=== PATIENT | female | born 1980 | race Caucasian/White ===

== ENCOUNTER 2019-04-21 11:35 | Inpatient (IN) | payer BC ==
[~2019-04-21 11:35] MED LIST: Bupivacaine 0.25% 10 ML SDV ONE
[2019-04-21] MEDS ORDERED: Sodium Chloride 0.9% 10 ML Syringe FLUSH PRN (12:18)
[2019-04-21] MEDS ORDERED: Lidocaine 1% 50 ML MDV INJECT ONE (12:18)
[2019-04-21] MEDS ORDERED: Ondansetron 4 MG/2 ML SDV IVPUSH PRN ×2 (12:18→13:26)
[2019-04-21] MEDS ORDERED: Nalbuphine 10 MG/ML Syringe IVPUSH PRN (12:18)
[2019-04-21] MEDS ORDERED: Oxytocin/Lactated Ringers 10 UNIT/1,000 ML BAG IV SCH ×3 (12:30→18:36)
[2019-04-21] MEDS: Lactated Ringers 1,000 ML IV SCH ×2 (12:57→13:48)
--- NOTE | 2019-04-21 13:15 | PCM.LDHP ---
<Charlette Fay - Last Filed: 04/21/19 13:08> L&D History of Present Illness - General Date of Service: 04/21/19 Admit Problem/Dx: Patient Status Order with Admit Dx/Problem 04/21/19 12:18 Patient Status [ADT] Routine Admission Diagnosis/Problem Admission Diagnosis/Problem Source of Information: Patient History Limitations: Reports: No Limitations - History of Present Illness Introduction:: 38 year old presents today with contractions she describes have been happening since 3 am today. Patient reports contractions were consistently 10 minutes apart until about 11am this morning on the way to the hospital they shortened to 4 minutes apart. She reports lower abdominal discomfort when contractions take place and denies any radiation to low back. Patient has not taken anything to alleviate the discomfort. She reports these feel similar to the contractions she has felt with her previous deliveries. Patient admits to some vaginal discharge clear and mucous fluid. She reports there was a very small amount of blood right before they left to come in. She plans on receiving an epidural for pain management. Timing/Duration: Reports: minutes: (4) Location, : Reports: Uterus Quality: Reports: Same as Previous Episode Severity: Mild Associated Symptoms: Reports: vaginal discharge (mucous and clear fluid), vaginal fluid - Related Data Allergies/Adverse Reactions: Allergies Allergy/AdvReac Type Severity Reaction Status Date / Time cefaclor [From Ceclor] Allergy Hives Verified 04/21/19 12:15 Home Medications: Home Meds #103/Iron Fumarate/Fa [ ] 1 each PO DAILY 04/21/19 [ History] Ranitidine HCl [Ranitidine] 150 mg PO BID 04/21/19 [History] Past Medical History Gastrointestinal History: Reports: GERD (Patient experiencing GERD during ), Irritable Bowel Syndrome 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: - Past Surgical History Female Surgical History: Reports: D&C (2012) Social & Family History - Family History Family Medical History: Noncontributory - Tobacco Use Smoking Status *Q: Never Smoker Second Hand Smoke Exposure: No - Tobacco Core Measures Tobacco Use/Smoking Within Last 30 Days: No Smokeless Tobacco Use in Last 30 Days: No Smokeless Tobacco Use History: None - Caffeine Use Caffeine Use: Reports: None - Alcohol Use Alcohol Use History: No - Recreational Drug Use Recreational Drug Use: No H&P Review of Systems - Review of Systems: Review Of Systems: See Below General: Denies: Fever, Chills, Fatigue HEENT: Denies: Ear Pain, Eye Pain, Headaches, Hearing Changes, Post Nasal Drip, Sinus Congestion, Sore Throat, Visual Changes Pulmonary: Denies: Shortness of Breath, Wheezing, Cough Cardiovascular: Denies: Chest Pain, Palpitations Gastrointestinal: Denies: Constipation, Diarrhea, Nausea, Vomiting Genitourinary: Denies: Dysuria, Burning, Pain Musculoskeletal: Denies: Arm Pain, Back Pain, Leg Pain, Joint Swelling Skin: Denies: Rash, Lesions, Lumps Psychiatric: Denies: Depression, Anxiety Neurological: Denies: Dizziness, Syncope, Tingling Hematologic/Lymphatic: Denies: Anemia, Other (Hx blood clots) L&D Exam - Exam Exam: See Below - Vital Signs Vital Signs: Last Vital Signs Temp 98.2 F 04/21/19 12:18 Pulse 85 04/21/19 12:18 Resp 15 04/21/19 12:18 BP 125/73 04/21/19 12:18 Pulse Ox Weight: 65.771 kg - OB Specific Contraction Intensity: Mild Movement: Active Heart Tones: Present - Hernandez Score Hernandez Score Cervix Position: Anterior Hernandez Score Consistency: Soft Hernandez Score Effacement: >80% (80) Hernandez Score Dilation: > 5 cm (5) Hernandez Score Infant's Station: -2 Hernandez Score Total: 11 - Exam General: Alert, Oriented HEENT: Conjunctiva Clear, EOMI Neck: Supple, Trachea Midline Lungs: Clear to Auscultation, Normal Respiratory Effort Cardiovascular: Regular Rate, Regular Rhythm Genitourinary: Normal external exam Skin: Warm, Dry, Intact Psychiatric: Alert, Normal Affect, Normal Mood - Patient Data Lab Results Last 24 hrs: Laboratory Results - last 24 hr 04/21/19 Range/Units 12:50 WBC 13.21 H (3.98-10.04) K/mm3 RBC 4.35 (3.98-5.22) M/mm3 Hgb 10.9 L (11.2-15.7) gm/dl Hct 34.5 (34.1-44.9) % MCV 79.3 L D (79.4-94.8) fl MCH 25.1 L (25.6-32.2) pg MCHC 31.6 L (32.2-35.5) g/dl RDW Std Deviation 38.8 (36.4-46.3) fL Plt Count 233 (182-369) K/mm3 MPV 9.3 L (9.4-12.3) fl Neut % (Auto) 76.4 H (34.0-71.1) % Lymph % (Auto) 13.6 L (19.3-51.7) % [place] % (Auto) 7.5 (4.7-12.5) % Eos % (Auto) 1.8 (0.7-5.8) Baso % (Auto) 0.2 (0.1-1.2) % Neut # (Auto) 10.11 H (1.56-6.13) K/mm3 Lymph # (Auto) 1.79 (1.18-3.74) K/mm3 [place] # (Auto) 0.99 H (0.24-0.36) K/mm3 Eos # (Auto) 0.24 (0.04-0.36) K/mm3 Baso # (Auto) 0.02 (0.01-0.08) K/mm3 Result Diagrams: 04/21/19 12:50 - Problem List (1) 39 weeks gestation of SNOMED Code(s): 05121697 ICD Code: Z3A.39 - 39 WEEKS GESTATION OF Status: Acute Current Visit: Yes (2) Gastroesophageal reflux during in third trimester, antepartum SNOMED Code(s): 824241413 ICD Code: O99.613 - DISEASES OF THE DGSTV SYS COMP , THIRD TRIMESTER ; K21.9 - GASTRO-ESOPHAGEAL REFLUX DISEASE WITHOUT ESOPHAGITIS Status: Acute Current Visit: Yes (3) Irritable bowel syndrome SNOMED Code(s): 07373639 ICD Code: K58.9 - IRRITABLE BOWEL SYNDROME WITHOUT DIARRHEA Status: Acute Current Visit: Yes Problem List Initiated/Reviewed/Updated: Yes Orders Last 24hrs: Active Orders 24 hr Category Date Time Status Patient Status [ADT] Routine ADT 04/21/19 12:18 Active Activity as Tolerated [RC] PFP Care 04/21/19 12:18 Active Communication Order [RC] ASDIRECTED Care 04/21/19 12:18 Active Heart Tones [RC] ASDIRECTED Care 04/21/19 12:19 Active Notify Provider [RC] PFP Care 04/21/19 12:18 Active Notify Provider [RC] PRN Care 04/21/19 12:18 Active Peripheral IV Care [RC] . DIRECTED Care 04/21/19 12:19 Active Pump Management, Intrathecal [RC] ASDIRECTED Care 04/21/19 12:20 Active Urinary Catheter Assessment [RC] ASDIRECTED Care 04/21/19 12:18 Active Vital Signs [RC] PER UNIT ROUTINE Care 04/21/19 12:18 Active Regular Diet [DIET] Diet 04/21/19 Breakfast Active RAPID PLASMA REAGIN,RPR [CHEM] Routine Lab 04/21/19 12:50 Received TYPE AND SCREEN [BBK] Stat Lab 04/21/19 12:50 Received Lactated Ringers [Ringers, Lactated] 1,000 ml Med 04/21/19 12:30 Active IV ASDIRECTED Nalbuphine [Nubain] Med 04/21/19 12:18 Active 10 mg IVPUSH Q2H PRN Ondansetron [Zofran] Med 04/21/19 12:18 Active 4 mg IVPUSH Q4H PRN Oxytocin/Lactated Ringers [Pitocin in LR 10 Units/1,000 Med 04/21/19 12:30 Active ML] 10 unit in 1,000 ml IV .CONTINUOUS Oxytocin/Lactated Ringers [Pitocin in LR 10 Units/1,000 Med 04/21/19 12:30 Active ML] 10 unit in 1,000 ml IV TITRATE Sodium Chloride 0.9% [Saline Flush] Med 04/21/19 12:18 Active 10 ml FLUSH ASDIRECTED PRN Electronic Heart Tones Ext w TOCO [WOMSER] Oth 04/21/19 12:18 Ordered Routine Electronic Heart Tones Internal [WOMSER] Per Unit Oth 04/21/19 12:18 Ordered Routine Peripheral IV Insertion Adult [OM.PC] Routine Oth 04/21/19 12:18 Ordered Resuscitation Status Routine Resus Stat 04/21/19 12:18 Ordered Medication Orders Lactated Ringer's (Ringers, Lactated) 1,000 mls @ 100 mls/hr IV ASDIRECTED BERTIN Last Admin: 04/21/19 12:57 Dose: 100 mls/hr Oxytocin/Lactated Ringer's (Pitocin In Lr 10 Units/1,000 Ml) 10 unit in 1,000 mls @ 12 mls/hr IV TITRATE BERTIN; Protocol Oxytocin/Lactated Ringer's (Pitocin In Lr 10 Units/1,000 Ml) 10 unit in 1,000 mls @ 100 mls/hr IV .CONTINUOUS BERTIN; Protocol Nalbuphine HCl (Nubain) 10 mg IVPUSH Q2H PRN PRN Reason: Pain Ondansetron HCl (Zofran) 4 mg IVPUSH Q4H PRN PRN Reason: Nausea/Vomiting Sodium Chloride (Saline Flush) 10 ml FLUSH ASDIRECTED PRN PRN Reason: Keep Vein Open Assessment/Plan Comment:: * Assess routine vitals. * Small amount of regular diet as tolerated. * IV fluids and keep the IV open. Pitocin may be used if contractions slow. * Order for CBC and RPR to be drawn GIOVANNA JaureguiS, 1340, 04/21/19 <Valente Merlos - Last Filed: 04/21/19 13:52> L&D History of Present Illness - General Admit Problem/Dx: Patient Status Order with Admit Dx/Problem 04/21/19 12:18 Patient Status [ADT] Routine Admission Diagnosis/Problem Admission Diagnosis/Problem - History of Present Illness Present Illness Comments:: Oneyda Purvis is a 38 year old 042 at 39 weeks 0 days by LMP consistent with 11-week ultrasound ([facility] 04/28/2019) who presents with spontaneous labor. She has had routine care with myself, Dr. Merlos starting at 10 weeks gestational age. She received influenza vaccine on 01/23/2019 and Tdap vaccine on 02/21/2019. Her has been overall uncomplicated except for development of gastroesophageal reflux during the over the last several weeks. She was noted to have hypocoiling of the umbilical cord on her anatomy ultrasound with normal helical coiling noted on biophysical profile on 03/14/2019. She discontinued weekly monitoring at that point. Her is complicated by: * Advanced maternal age, declined genetic screening testing * Hypocoiling of the umbilical cord noted on initial ultrasound with resolution noted on biophysical profile performed 03/14/2019 * Echogenic cardiac focus noted on anatomy ultrasound on 12/28/2018, no other features suggestive of Down syndrome or other genetic defects * Gastroesophageal reflux that developed during third trimester of * Irritable bowel syndrome labs Blood type: A+ Antibody screen: Negative First trimester hematocrit/hemoglobin: 41.7%/14.0 on 10/01/2018 Platelets: 282 on 10/01/2018 Pap smear: Negative for intraepithelial lesion or malignancy with negative HPV on 08/23/2018 Urine culture: Mixed reynold suggestive of contamination Rubella status: Immune Hepatitis B surface antigen: Negative RPR: Negative HIV: Negative Gonorrhea: Negative Chlamydia: Negative anatomy ultrasound: Grossly normal anatomy ultrasound except for echogenic focus in the left ventricle, weight 60th percentile on 12/28/2018, anterior placenta, hypocoiling of umbilical cord, most recent estimated weight was 33rd percentile on 03/14/2019 One hour glucose tolerance test: 117 Second trimester hematocrit/hemoglobin: 32.9%/10.5 on 02/19/2019 Platelets: 202 on 02/19/2019 GBS status: Negative L&D Exam - Vital Signs Vital Signs: Last Vital Signs Temp 36.8 C 04/21/19 12:18 Pulse 85 04/21/19 12:18 Resp 15 04/21/19 12:18 BP 125/73 04/21/19 12:18 Pulse Ox - Patient Data Lab Results Last 24 hrs: Laboratory Results - last 24 hr 04/21/19 04/21/19 Range/Units 12:50 12:50 WBC 13.21 H (3.98-10.04) K/mm3 RBC 4.35 (3.98-5.22) M/mm3 Hgb 10.9 L (11.2-15.7) gm/dl Hct 34.5 (34.1-44.9) % MCV 79.3 L D (79.4-94.8) fl MCH 25.1 L (25.6-32.2) pg MCHC 31.6 L (32.2-35.5) g/dl RDW Std Deviation 38.8 (36.4-46.3) fL Plt Count 233 (182-369) K/mm3 MPV 9.3 L (9.4-12.3) fl Neut % (Auto) 76.4 H (34.0-71.1) % Lymph % (Auto) 13.6 L (19.3-51.7) % [place] % (Auto) 7.5 (4.7-12.5) % Eos % (Auto) 1.8 (0.7-5.8) Baso % (Auto) 0.2 (0.1-1.2) % Neut # (Auto) 10.11 H (1.56-6.13) K/mm3 Lymph # (Auto) 1.79 (1.18-3.74) K/mm3 [place] # (Auto) 0.99 H (0.24-0.36) K/mm3 Eos # (Auto) 0.24 (0.04-0.36) K/mm3 Baso # (Auto) 0.02 (0.01-0.08) K/mm3 Blood Type A POSITIVE Gel Antibody Screen Negative Result Diagrams: 04/21/19 12:50 Orders Last 24hrs: Active Orders 24 hr Category Date Time Status Patient Status [ADT] Routine ADT 04/21/19 12:18 Active Activity as Tolerated [RC] PFP Care 04/21/19 12:18 Active Communication Order [RC] ASDIRECTED Care 04/21/19 12:18 Active Heart Tones [RC] ASDIRECTED Care 04/21/19 12:19 Active Notify Provider [RC] ASDIRECTED Care 04/21/19 13:26 Active Notify Provider [RC] PFP Care 04/21/19 12:18 Active Notify Provider [RC] PRN Care 04/21/19 12:18 Active Oxygen Therapy [RC] ASDIRECTED Care 04/21/19 13:26 Active Peripheral IV Care [RC] . DIRECTED Care 04/21/19 12:19 Active Pulse Oximetry [RC] ASDIRECTED Care 04/21/19 13:26 Active Pump Management, Intrathecal [RC] ASDIRECTED Care 04/21/19 12:20 Active Urinary Catheter Assessment [RC] ASDIRECTED Care 04/21/19 12:18 Active Vital Signs [RC] PER UNIT ROUTINE Care 04/21/19 12:18 Active Regular Diet [DIET] Diet 04/21/19 Breakfast Active RAPID PLASMA REAGIN,RPR [CHEM] Routine Lab 04/21/19 12:50 Received Bupivicaine/fentaNYL/NS [fentaNYL/Bupivacaine/NS 2 MCG- Med 04/21/19 13:26 Active 0.125% 250 ML] 0 ml EPIDUR CONTINUOUS PRN Lactated Ringers [Ringers, Lactated] 1,000 ml Med 04/21/19 12:30 Active IV ASDIRECTED Nalbuphine [Nubain] Med 04/21/19 12:18 Active 10 mg IVPUSH Q2H PRN Ondansetron [Zofran] Med 04/21/19 13:26 Active 4 mg IVPUSH ONETIME PRN Ondansetron [Zofran] Med 04/21/19 12:18 Active 4 mg IVPUSH Q4H PRN Oxytocin/Lactated Ringers [Pitocin in LR 10 Units/1,000 Med 04/21/19 12:30 Active ML] 10 unit in 1,000 ml IV .CONTINUOUS Oxytocin/Lactated Ringers [Pitocin in LR 10 Units/1,000 Med 04/21/19 12:30 Active ML] 10 unit in 1,000 ml IV TITRATE Phenylephrine [Roger-Synephrine] 1 mg Med 04/21/19 13:30 Active Sodium Chloride 0.9% [Normal Saline] 10 ml IV TITRATE Sodium Chloride 0.9% [Saline Flush] Med 04/21/19 12:18 Active 10 ml FLUSH ASDIRECTED PRN ePHEDrine [ePHEDrine sulfate] Med 04/21/19 13:26 Active 5 mg IVPUSH ASDIRECTED PRN fentaNYL [Sublimaze] Med 04/21/19 13:26 Active 100 mcg EPIDUR Q3H PRN Electronic Heart Tones Ext w TOCO [WOMSER] Oth 04/21/19 12:18 Ordered Routine Electronic Heart Tones Internal [WOMSER] Per Unit Ot 04/21/19 12:18 Ordered Routine Peripheral IV Insertion Adult [OM.PC] Routine Oth 04/21/19 12:18 Ordered Resuscitation Status Routine Resus Stat 04/21/19 12:18 Ordered Medication Orders Ephedrine Sulfate (Ephedrine Sulfate) 5 mg IVPUSH ASDIRECTED PRN PRN Reason: Hypotension Fentanyl (Sublimaze) 100 mcg EPIDUR Q3H PRN PRN Reason: Pain Fentanyl/Bupivacaine HCl (Fentanyl/Bupivacaine/Ns 2 Mcg-0.125% 250 Ml) 0 ml EPIDUR CONTINUOUS PRN PRN Reason: Pain Lactated Ringer's (Ringers, Lactated) 1,000 mls @ 100 mls/hr IV ASDIRECTED BERTIN Last Admin: 04/21/19 12:57 Dose: 100 mls/hr Oxytocin/Lactated Ringer's (Pitocin In Lr 10 Units/1,000 Ml) 10 unit in 1,000 mls @ 12 mls/hr IV TITRATE BERTIN; Protocol Oxytocin/Lactated Ringer's (Pitocin In Lr 10 Units/1,000 Ml) 10 unit in 1,000 mls @ 100 mls/hr IV .CONTINUOUS BERTIN; Protocol Phenylephrine HCl 1 mg/ Sodium (Chloride) 10.1 mls @ 1 mls/sec IV TITRATE BERTIN; Protocol Nalbuphine HCl (Nubain) 10 mg IVPUSH Q2H PRN PRN Reason: Pain Ondansetron HCl (Zofran) 4 mg IVPUSH Q4H PRN PRN Reason: Nausea/Vomiting Ondansetron HCl (Zofran) 4 mg IVPUSH ONETIME PRN PRN Reason: Nausea/Vomiting Sodium Chloride (Saline Flush) 10 ml FLUSH ASDIRECTED PRN PRN Reason: Keep Vein Open Assessment/Plan Comment:: I have seen and evaluated the patient with the PA student and agree with the assessment and plan as per above. No changes needed. Anticipate vaginal delivery unless otherwise indicated Valente Merlos MD 1:52 PM 04/21/2019
[2019-04-21] MEDS ORDERED: ePHEDrine 50 MG/ML SDV IVPUSH PRN (13:26)
[2019-04-21] MEDS ORDERED: fentaNYL 100 MCG/2 ML SDV EPIDUR PRN (13:26)
[2019-04-21] MEDS ORDERED: fentaNYL/Bupivacaine/NS 2 MCG-0.125% 250 ML EPIDUR PRN (13:26)
--- NOTE | 2019-04-21 13:28 | PCM.PREANE ---
Preanesthetic Assessment - Anesthesia/Transfusion/Family Hx Anesthesia History: Prior Anesthesia Without Reaction Family History of Anesthesia Reaction: No Transfusion History: No Prior Transfusion(s) Intubation History: Unknown - Review of Systems General: No Symptoms Pulmonary: No Symptoms Cardiovascular: No Symptoms Gastrointestinal: No Symptoms (GERD) Neurological: No Symptoms Other: Reports: None - Physical Assessment NPO Status Date: 04/21/19 NPO Status Time: 11:00 Vital Signs: Last Vital Signs Temp 36.8 C 04/21/19 12:18 Pulse 85 04/21/19 12:18 Resp 15 04/21/19 12:18 BP 125/73 04/21/19 12:18 Pulse Ox Height: 1.55 m Weight: 65.771 kg ASA Class: 2 Mental Status: Alert & Oriented x3 Airway Class: Mallampati = 2 Dentition: Reports: Normal Dentition, Caries Thyro-Mental Finger Breadths: 3 Mouth Opening Finger Breadths: 3 ROM/Head Extension: Full Lungs: Clear to Auscultation, Normal Respiratory Effort Cardiovascular: Regular Rate, Regular Rhythm, No Murmurs - Lab Values: Laboratory Last Values WBC 13.21 K/mm3 (3.98-10.04) H 04/21/19 12:50 RBC 4.35 M/mm3 (3.98-5.22) 04/21/19 12:50 Hgb 10.9 gm/dl (11.2-15.7) L 04/21/19 12:50 Hct 34.5 % (34.1-44.9) 04/21/19 12:50 MCV 79.3 fl (79.4-94.8) L D 04/21/19 12:50 MCH 25.1 pg (25.6-32.2) L 04/21/19 12:50 MCHC 31.6 g/dl (32.2-35.5) L 04/21/19 12:50 RDW Std Deviation 38.8 fL (36.4-46.3) 04/21/19 12:50 Plt Count 233 K/mm3 (182-369) 04/21/19 12:50 MPV 9.3 fl (9.4-12.3) L 04/21/19 12:50 Neut % (Auto) 76.4 % (34.0-71.1) H 04/21/19 12:50 Lymph % (Auto) 13.6 % (19.3-51.7) L 04/21/19 12:50 [place] % (Auto) 7.5 % (4.7-12.5) 04/21/19 12:50 Eos % (Auto) 1.8 (0.7-5.8) 04/21/19 12:50 Baso % (Auto) 0.2 % (0.1-1.2) 04/21/19 12:50 Neut # (Auto) 10.11 K/mm3 (1.56-6.13) H 04/21/19 12:50 Lymph # (Auto) 1.79 K/mm3 (1.18-3.74) 04/21/19 12:50 [place] # (Auto) 0.99 K/mm3 (0.24-0.36) H 04/21/19 12:50 Eos # (Auto) 0.24 K/mm3 (0.04-0.36) 04/21/19 12:50 Baso # (Auto) 0.02 K/mm3 (0.01-0.08) 04/21/19 12:50 Above labs reviewed and noted and within acceptable ranges to proceed with epidural. - Allergies Allergies/Adverse Reactions: Allergies Allergy/AdvReac Type Severity Reaction Status Date / Time cefaclor [From [facility]] Allergy Hives Verified 04/21/19 12:15 - Anesthesia Plan Pre-Op Medication Ordered: None - Acknowledgements Anesthesia Type Planned: Epidural Pt an Appropriate Candidate for the Planned Anesthesia: Yes Alternatives and Risks of Anesthesia Discussed w Pt/Guardian: Yes Pt/Guardian Understands and Agrees with Anesthesia Plan: Yes PreAnesthesia Questionnaire Gastrointestinal History: Reports: GERD (Patient experiencing GERD during ), Irritable Bowel Syndrome [employer]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: - Past Surgical History Female Surgical History: Reports: D&C - SUBSTANCE USE Smoking Status *Q: Never Smoker Second Hand Smoke Exposure: No Recreational Drug Use History: No - HOME MEDS Home Medications: Home Meds #103/Iron Fumarate/Fa [ ] 1 each PO DAILY 04/21/19 [ History] Ranitidine HCl [Ranitidine] 150 mg PO BID 04/21/19 [History] - CURRENT (IN HOUSE) MEDS Current Meds: Current Medications Ephedrine Sulfate (Ephedrine Sulfate) 5 mg IVPUSH ASDIRECTED PRN PRN Reason: Hypotension Fentanyl (Sublimaze) 100 mcg EPIDUR Q3H PRN PRN Reason: Pain Fentanyl/Bupivacaine HCl (Fentanyl/Bupivacaine/Ns 2 Mcg-0.125% 250 Ml) ml EPIDUR CONTINUOUS PRN PRN Reason: Pain Lactated Ringer's (Ringers, Lactated) 1,000 mls @ 100 mls/hr IV ASDIRECTED BERTIN Last Admin: 04/21/19 12:57 Dose: 100 mls/hr Oxytocin/Lactated Ringer's (Pitocin In Lr 10 Units/1,000 Ml) 10 unit in 1,000 mls @ 12 mls/hr IV TITRATE BERTIN; Protocol Oxytocin/Lactated Ringer's (Pitocin In Lr 10 Units/1,000 Ml) 10 unit in 1,000 mls @ 100 mls/hr IV .CONTINUOUS BERTIN; Protocol Phenylephrine HCl 1 mg/ Sodium (Chloride) 10.1 mls @ 1 mls/sec IV TITRATE BERTIN; Protocol Nalbuphine HCl (Nubain) 10 mg IVPUSH Q2H PRN PRN Reason: Pain Ondansetron HCl (Zofran) 4 mg IVPUSH Q4H PRN PRN Reason: Nausea/Vomiting Ondansetron HCl (Zofran) 4 mg IVPUSH ONETIME PRN PRN Reason: Nausea/Vomiting Sodium Chloride (Saline Flush) 10 ml FLUSH ASDIRECTED PRN PRN Reason: Keep Vein Open Discontinued Medications Lidocaine HCl (Xylocaine 1%) 50 ml INJECT ONETIME ONE Stop: 04/21/19 12:19
[2019-04-21] MEDS ORDERED: Phenylephrine 1 MG in Sodium Chloride 0.9% 10 ML IV SCH (13:30)
--- NOTE | 2019-04-21 18:12 | PCM.DEL ---
L & D Note - General Info Date of Service: 04/21/19 Mother's Due Date: 04/28/19 - Delivery Note Labor: Spontaneous, Augmented by ARM Delivery Outcome: Livebirth Delivery Method: Spontaneous Vaginal Delivery-Single Presentation: Right Occiput Posterior (ROP) Nuchal Cord: Present (not reduced prior to delivery due to tight cord) Anesthesia Type: Epidural Episiotomy Type: None Laceration: 1st Degree (midline perineal, repaired with 4-0 Vicryl) Suture type: Vicryl Suture size: 4-0 Placenta: Intact, Spontaneous Cord: 3 Vessels Estimated Blood Loss: 200 Resuscitation Needed: No : Bulb Syringe, Stimulated, Warmed, Freedom Used, Warmer Used Provider: Valente Merlos Score 1 min: 8 Score 5 min: 9 Second Stage Interventions: Reports: Pushing Effectively, Pushing, Pulls Own Legs Back, Pushing, Squatting (for a short while to move baby further into pelvis) Delivery Comments (Free Text/Narrative):: Stage I: Oneyda Purvis was admitted for spontaneous labor. On admission her cervix was dilated to 5 cm. She was GBS negative. She had artificial rupture of membranes with clear fluid. She was given an epidural for anesthesia. She progressed to complete and pushing. Stage II: On 04/21/2019 she had a normal vaginal delivery of a live male infant at 17:30. Apgars of 8 & 9. Weight of 3280 g (7 lbs 3.7 oz). Length of 20 inches. There was a single tight nuchal cord that was not able to be reduced prior to delivery. Infant was delivered in ROP position. The cord was doubly clamped and cut by father of the . was placed on mother's abdomen. Stage III: She had a spontaneous delivery of an intact placenta in Hai presentation. Three vessel cord. She was given pitocin and fundal massage. She had a small first-degree midline perineal laceration that had bleeding that was repaired with 4-0 Vicryl. Mom and baby were stable to recovery. EBL of 200 mL. Valente Merlos MD 6:12 PM 04/21/2019 - General Info Date of Service: 04/21/19 - Patient Data Vitals - Most Recent: Last Vital Signs Temp 36.8 C 04/21/19 12:18 Pulse 85 04/21/19 12:18 Resp 15 04/21/19 12:18 BP 125/73 04/21/19 12:18 Pulse Ox Weight - Most Recent: 65.771 kg I&O - Last 24 Hours: Intake & Output 04/21/19 04/21/19 04/21/19 06:59 14:59 22:59 Intake Total 1000 Balance 1000 Lab Results Last 24 Hours: Laboratory Results - last 24 hr 04/21/19 04/21/19 Range/Units 12:50 12:50 WBC 13.21 H (3.98-10.04) K/mm3 RBC 4.35 (3.98-5.22) M/mm3 Hgb 10.9 L (11.2-15.7) gm/dl Hct 34.5 (34.1-44.9) % MCV 79.3 L D (79.4-94.8) fl MCH 25.1 L (25.6-32.2) pg MCHC 31.6 L (32.2-35.5) g/dl RDW Std Deviation 38.8 (36.4-46.3) fL Plt Count 233 (182-369) K/mm3 MPV 9.3 L (9.4-12.3) fl Neut % (Auto) 76.4 H (34.0-71.1) % Lymph % (Auto) 13.6 L (19.3-51.7) % [place] % (Auto) 7.5 (4.7-12.5) % Eos % (Auto) 1.8 (0.7-5.8) Baso % (Auto) 0.2 (0.1-1.2) % Neut # (Auto) 10.11 H (1.56-6.13) K/mm3 Lymph # (Auto) 1.79 (1.18-3.74) K/mm3 Henry # (Auto) 0.99 H (0.24-0.36) K/mm3 Eos # (Auto) 0.24 (0.04-0.36) K/mm3 Baso # (Auto) 0.02 (0.01-0.08) K/mm3 Blood Type A POSITIVE Gel Antibody Screen Negative Med Orders - Current: Current Medications Ephedrine Sulfate (Ephedrine Sulfate) 5 mg IVPUSH ASDIRECTED PRN PRN Reason: Hypotension Fentanyl (Sublimaze) 100 mcg EPIDUR Q3H PRN PRN Reason: Pain Last Admin: 04/21/19 13:47 Dose: 100 mcg Fentanyl/Bupivacaine HCl (Fentanyl/Bupivacaine/Ns 2 Mcg-0.125% 250 Ml) 0 ml EPIDUR CONTINUOUS PRN PRN Reason: Pain Last Admin: 04/21/19 13:46 Dose: 250 ml Lactated Ringer's (Ringers, Lactated) 1,000 mls @ 100 mls/hr IV ASDIRECTED BERTIN Last Admin: 04/21/19 13:48 Dose: 100 mls/hr Oxytocin/Lactated Ringer's (Pitocin In Lr 10 Units/1,000 Ml) 10 unit in 1,000 mls @ 12 mls/hr IV TITRATE BERTIN; Protocol Oxytocin/Lactated Ringer's (Pitocin In Lr 10 Units/1,000 Ml) 10 unit in 1,000 mls @ 100 mls/hr IV .CONTINUOUS BERTIN; Protocol Phenylephrine HCl 1 mg/ Sodium (Chloride) 10.1 mls @ 1 mls/sec IV TITRATE BERTIN; Protocol Nalbuphine HCl (Nubain) 10 mg IVPUSH Q2H PRN PRN Reason: Pain Ondansetron HCl (Zofran) 4 mg IVPUSH Q4H PRN PRN Reason: Nausea/Vomiting Ondansetron HCl (Zofran) 4 mg IVPUSH ONETIME PRN PRN Reason: Nausea/Vomiting Sodium Chloride (Saline Flush) 10 ml FLUSH ASDIRECTED PRN PRN Reason: Keep Vein Open Discontinued Medications Lidocaine HCl (Xylocaine 1%) 50 ml INJECT ONETIME ONE Stop: 04/21/19 12:19 - Problem List & Annotations (1) Vaginal delivery SNOMED Code(s): 222326855 Code(s): O80 - ENCOUNTER FOR FULL-TERM UNCOMPLICATED DELIVERY Status: Acute Current Visit: Yes (2) First degree perineal laceration during delivery SNOMED Code(s): 464843299 Code(s): O70.0 - FIRST DEGREE PERINEAL LACERATION DURING DELIVERY Status: Acute Current Visit: Yes (3) Nuchal cord, delivered, current hospitalization SNOMED Code(s): 121047030, 429149464 Code(s): O69.81X0 - LABOR AND DEL COMP BY CORD AROUND NECK, W/O COMPRSN, UNSP Status: Acute Current Visit: Yes (4) 39 weeks gestation of SNOMED Code(s): 65676316 Code(s): Z3A.39 - 39 WEEKS GESTATION OF Status: Acute Current Visit: Yes (5) Gastroesophageal reflux during in third trimester, antepartum SNOMED Code(s): 233132794 Code(s): O99.613 - DISEASES OF THE DGSTV SYS COMP , THIRD TRIMESTER ; K21.9 - GASTRO-ESOPHAGEAL REFLUX DISEASE WITHOUT ESOPHAGITIS Status: Acute Current Visit: Yes (6) Irritable bowel syndrome SNOMED Code(s): 42066785 Code(s): K58.9 - IRRITABLE BOWEL SYNDROME WITHOUT DIARRHEA Status: Acute Current Visit: Yes - Problem List Review Problem List Initiated/Reviewed/Updated: Yes - My Orders Last 24 Hours: My Active Orders 04/21/19 12:18 Patient Status [ADT] Routine Activity as Tolerated [RC] PFP Communication Order [RC] ASDIRECTED Notify Provider [RC] PFP Notify Provider [RC] PRN Urinary Catheter Assessment [RC] ASDIRECTED Vital Signs [RC] PER UNIT ROUTINE Nalbuphine [Nubain] 10 mg IVPUSH Q2H PRN Ondansetron [Zofran] 4 mg IVPUSH Q4H PRN Sodium Chloride 0.9% [Saline Flush] 10 ml FLUSH ASDIRECTED PRN Electronic Heart Tones Ext w TOCO [WOMSER] Routine Electronic Heart Tones Internal [WOMSER] Per Unit Routine Peripheral IV Insertion Adult [OM.PC] Routine Resuscitation Status Routine 04/21/19 12:19 Heart Tones [RC] ASDIRECTED Peripheral IV Care [RC] . DIRECTED 04/21/19 12:20 Pump Management, Intrathecal [RC] ASDIRECTED 04/21/19 12:30 Lactated Ringers [Ringers, Lactated] 1,000 ml IV ASDIRECTED Oxytocin/Lactated Ringers [Pitocin in LR 10 Units/1,000 ML] 10 unit in 1,000 ml IV .CONTINUOUS Oxytocin/Lactated Ringers [Pitocin in LR 10 Units/1,000 ML] 10 unit in 1,000 ml IV TITRATE 04/21/19 12:50 RAPID PLASMA REAGIN,RPR [CHEM] Routine 04/21/19 17:57 Patient Status Manage Transfer [TRANSFER] Routine 04/21/19 Breakfast Regular Diet [DIET] - Plan Plan:: Admit to inpatient following normal spontaneous vaginal delivery Continue Pitocin per unit protocol following delivery of placenta and lactated Ringer's until tolerating regular diet Regular diet Vitals per unit routine Ibuprofen and Tylenol for pain control Assist with breast-feeding as needed Continue to monitor lochia Anticipate discharge home on day #1 Valente Merlos MD 6:12 PM 04/21/2019
[2019-04-21] MEDS ORDERED: Acetaminophen 325 MG Tab PO PRN (18:36)
[2019-04-21] MEDS ORDERED: Witch Hazel Medicated Pads 40/Jar TOP PRN (18:36)
[2019-04-21] MEDS ORDERED: Docusate Sodium 100 MG Cap PO PRN (18:36)
[2019-04-21] MEDS ORDERED: Benzocaine/Menthol 20%-0.5% Spray 56 GM Canister TOP PRN (18:36)
[2019-04-21] MEDS ORDERED: Hydrocortisone Acetate 25 MG Supp RECTAL PRN (18:36)
[2019-04-21] MEDS: Ibuprofen 600 MG Tab PO PRN (20:01)
[2019-04-22] MEDS: Ibuprofen 600 MG Tab PO PRN ×3 (02:47→15:56)
--- NOTE | 2019-04-22 07:14 | PCM48HPAN ---
Post Anesthesia Note - EVALUATION WITHIN 48HRS OF ANESTHETIC Vital Signs in Normal Range: Yes Patient Participated in Evaluation: Yes Respiratory Function Stable: Yes Airway Patent: Yes Cardiovascular Function Stable: Yes Hydration Status Stable: Yes Pain Control Satisfactory: Yes Nausea and Vomiting Control Satisfactory: Yes Mental Status Recovered: Yes Vital Signs: Last Vital Signs Temp 36.7 C 04/22/19 02:48 Pulse 64 04/22/19 02:48 Resp 14 04/22/19 02:48 BP 128/70 04/22/19 02:48 Pulse Ox 98 04/22/19 02:48 - COMMENTS/OBSERVATIONS Free Text/Narrative:: no anesthesia complications noted
[2019-04-22] MEDS ORDERED: Prenatal Multivitamin with Calcium/Folic Acid/Iron Tab PO SCH (09:00)
--- NOTE | 2019-04-22 09:21 | PCM.SN ---
- Free Text/Narrative Note: Post Progress Note PPD # 1 Subjective: Doing well overall. Ambulating without difficulty. Lochia minimal. Voiding without difficulty. Tolerating regular diet without nausea or vomiting. Pain controlled with oral medications. Reports some increased amount of cramping this morning. Breast-feeding with minimal difficulty. Objective: Vitals: Vital Signs - 24 hr 04/21/19 04/21/19 04/22/19 12:18 20:54 02:48 Temperature 36.8 C 36.7 C Temperature [ 36.8 C Temporal] Pulse, 122 H 64 Peripheral Pulse, 85 Peripheral [ Brachial] Respiratory 15 14 14 Rate Blood Pressure 126/64 128/70 Blood Pressure 125/73 [Upper Arm] O2 Sat by Pulse 97 98 Oximetry Physical Exam General: Alert and oriented, no acute distress Lungs: Clear to auscultation bilaterally Heart: Regular rate and rhythm Abdomen: Soft, minimal appropriate tenderness, non-distended, fundus midline, nontender, and 1 fingerbreadth below the umbilicus Extremities: No edema Laboratory Tests 04/21/19 04/21/19 Range/Units 12:50 12:50 WBC 13.21 H (3.98-10.04) K/mm3 RBC 4.35 (3.98-5.22) M/mm3 Hgb 10.9 L (11.2-15.7) gm/dl Hct 34.5 (34.1-44.9) % MCV 79.3 L D (79.4-94.8) fl MCH 25.1 L (25.6-32.2) pg MCHC 31.6 L (32.2-35.5) g/dl RDW Std Deviation 38.8 (36.4-46.3) fL Plt Count 233 (182-369) K/mm3 MPV 9.3 L (9.4-12.3) fl Neut % (Auto) 76.4 H (34.0-71.1) % Lymph % (Auto) 13.6 L (19.3-51.7) % [place] % (Auto) 7.5 (4.7-12.5) % Eos % (Auto) 1.8 (0.7-5.8) Baso % (Auto) 0.2 (0.1-1.2) % Neut # (Auto) 10.11 H (1.56-6.13) K/mm3 Lymph # (Auto) 1.79 (1.18-3.74) K/mm3 [place] # (Auto) 0.99 H (0.24-0.36) K/mm3 Eos # (Auto) 0.24 (0.04-0.36) K/mm3 Baso # (Auto) 0.02 (0.01-0.08) K/mm3 Blood Type A POSITIVE Gel Antibody Screen Negative ASSESSMENT: 38-year-old female -0-4-3 s/p normal vaginal delivery PPD #1, complicated by advanced maternal age, echogenic cardiac focus on anatomy ultrasound with no other abnormal findings, gastroesophageal reflux disease and irritable bowel syndrome PLAN: Doing well Breast-feeding with minimal difficulty. Assist as needed Lochia minimal. Continue to monitor for appropriate lochia. Continue routine care Anticipate discharge home today Valente Merlos MD 9:22 AM 04/22/2019
--- NOTE | 2019-04-22 09:27 | PCM.DCSUM1 ---
Discharge Summary - Hospital Course Free Text/Narrative:: - General Info Date of Service: 04/21/19 Mother's Due Date: 04/28/19 - Delivery Note Labor: Spontaneous, Augmented by ARM Delivery Outcome: Livebirth Delivery Method: Spontaneous Vaginal Delivery-Single Presentation: Right Occiput Posterior (ROP) Nuchal Cord: Present (not reduced prior to delivery due to tight cord) Anesthesia Type: Epidural Episiotomy Type: None Laceration: 1st Degree (midline perineal, repaired with 4-0 Vicryl) Suture type: Vicryl Suture size: 4-0 Placenta: Intact, Spontaneous Cord: 3 Vessels Estimated Blood Loss: 200 Resuscitation Needed: No Dolores: Bulb Syringe, Stimulated, Warmed, Avant Used, Warmer Used Provider: Valente Merlos Score 1 min: 8 Score 5 min: 9 Second Stage Interventions: Reports: Pushing Effectively, Pushing, Pulls Own Legs Back, Pushing, Squatting (for a short while to move baby further into pelvis) Delivery Comments (Free Text/Narrative):: Stage I: Oneyda Purvis was admitted for spontaneous labor. On admission her cervix was dilated to 5 cm. She was GBS negative. She had artificial rupture of membranes with clear fluid. She was given an epidural for anesthesia. She progressed to complete and pushing. Stage II: On 04/21/2019 she had a normal vaginal delivery of a live male infant at 17:30. Apgars of 8 & 9. Weight of 3280 g (7 lbs 3.7 oz). Length of 20 inches. There was a single tight nuchal cord that was not able to be reduced prior to delivery. Infant was delivered in ROP position. The cord was doubly clamped and cut by father of the infant. Infant was placed on mother's abdomen. Stage III: She had a spontaneous delivery of an intact placenta in Hai presentation. Three vessel cord. She was given pitocin and fundal massage. She had a small first-degree midline perineal laceration that had bleeding that was repaired with 4-0 Vicryl. Mom and baby were stable to recovery. EBL of 200 mL. HPI Initial Comments: - General Info Date of Service: 04/21/19 Mother's Due Date: 04/28/19 - Delivery Note Labor: Spontaneous, Augmented by ARM Delivery Outcome: Livebirth Delivery Method: Spontaneous Vaginal Delivery-Single Presentation: Right Occiput Posterior (ROP) Nuchal Cord: Present (not reduced prior to delivery due to tight cord) Anesthesia Type: Epidural Episiotomy Type: None Laceration: 1st Degree (midline perineal, repaired with 4-0 Vicryl) Suture type: Vicryl Suture size: 4-0 Placenta: Intact, Spontaneous Cord: 3 Vessels Estimated Blood Loss: 200 Resuscitation Needed: No : Bulb Syringe, Stimulated, Warmed, Avant Used, Warmer Used Provider: Valente Merlos Score 1 min: 8 Score 5 min: 9 Second Stage Interventions: Reports: Pushing Effectively, Pushing, Pulls Own Legs Back, Pushing, Squatting (for a short while to move baby further into pelvis) Delivery Comments (Free Text/Narrative):: Stage I: Oneyda Purvis was admitted for spontaneous labor. On admission her cervix was dilated to 5 cm. She was GBS negative. She had artificial rupture of membranes with clear fluid. She was given an epidural for anesthesia. She progressed to complete and pushing. Stage II: On 04/21/2019 she had a normal vaginal delivery of a live male infant at 17:30. Apgars of 8 & 9. Weight of 3280 g (7 lbs 3.7 oz). Length of 20 inches. There was a single tight nuchal cord that was not able to be reduced prior to delivery. was delivered in ROP position. The cord was doubly clamped and cut by father of the . Infant was placed on mother's abdomen. Stage III: She had a spontaneous delivery of an intact placenta in Hai presentation. Three vessel cord. She was given pitocin and fundal massage. She had a small first-degree midline perineal laceration that had bleeding that was repaired with 4-0 Vicryl. Mom and baby were stable to recovery. EBL of 200 mL. Brief History: - General Info. Date of Service: 04/21/19. Mother's Due Date: 04/28/19. - Delivery Note. Labor: Spontaneous, Augmented by ARM. Delivery Outcome: Livebirth. Delivery Method: Spontaneous Vaginal Delivery- Single. Presentation: Right Occiput Posterior (ROP). Nuchal Cord: Present (not reduced prior to delivery due to tight cord). Anesthesia Type: Epidural. Episiotomy Type: None. Laceration: 1st Degree (midline perineal, repaired with 4-0 Vicryl). Suture type: Vicryl. Suture size: 4-0. Placenta: Intact, Spontaneous. Cord: 3 Vessels. Estimated Blood Loss: 200. Resuscitation Needed: No. : Bulb Syringe, Stimulated, Warmed, Avant Used, Warmer Used. Provider: Valente Merlos. Score 1 min: 8. Score 5 min: 9. Second Stage Interventions: Reports: Pushing Effectively , Pushing, Pulls Own Legs Back, Pushing, Squatting (for a short while to move baby further into pelvis). Delivery Comments (Free Text/Narrative):: Stage I: Oneyda Purvis was admitted for spontaneous labor. On admission her cervix was dilated to 5 cm. She was GBS negative. She had artificial rupture of membranes with clear fluid. She was given an epidural for anesthesia. She progressed to complete and pushing. Stage II: On 04/21/2019 she had a normal vaginal delivery of a live male infant at 17:30. Apgars of 8 & 9. Weight of 3280 g (7 lbs 3.7 oz) . Length of 20 inches. There was a single tight nuchal cord that was not able to be reduced prior to delivery. was delivered in ROP position. The cord was doubly clamped and cut by father of the . Infant was placed on mother' s abdomen. Stage III: She had a spontaneous delivery of an intact placenta in Hai presentation. Three vessel cord. She was given pitocin and fundal massage. She had a small first-degree midline perineal laceration that had bleeding that was repaired with 4-0 Vicryl. Mom and baby were stable to recovery. EBL of 200 mL. Diagnosis: Stroke: No - Discharge Data Discharge Date: 04/22/19 Discharge Disposition: Home, Self-Care 01 Condition: Good - Referral to Home Health Primary Care Physician: Valente Merlos MD - Discharge Diagnosis/Problem(s) (1) Vaginal delivery SNOMED Code(s): 371632605 ICD Code: O80 - ENCOUNTER FOR FULL-TERM UNCOMPLICATED DELIVERY Status: Acute Current Visit: Yes (2) First degree perineal laceration during delivery SNOMED Code(s): 537192844 ICD Code: O70.0 - FIRST DEGREE PERINEAL LACERATION DURING DELIVERY Status: Acute Current Visit: Yes (3) Nuchal cord, delivered, current hospitalization SNOMED Code(s): 510610801, 533146387 ICD Code: O69.81X0 - LABOR AND DEL COMP BY CORD AROUND NECK, W/O COMPRSN, UNSP Status: Acute Current Visit: Yes (4) 39 weeks gestation of SNOMED Code(s): 64971476 ICD Code: Z3A.39 - 39 WEEKS GESTATION OF Status: Acute Current Visit: Yes (5) Gastroesophageal reflux during in third trimester, antepartum SNOMED Code(s): 302141429 ICD Code: O99.613 - DISEASES OF THE DGSTV SYS COMP , THIRD TRIMESTER ; K21.9 - GASTRO-ESOPHAGEAL REFLUX DISEASE WITHOUT ESOPHAGITIS Status: Acute Current Visit: Yes (6) Irritable bowel syndrome SNOMED Code(s): 75248545 ICD Code: K58.9 - IRRITABLE BOWEL SYNDROME WITHOUT DIARRHEA Status: Acute Current Visit: Yes - Patient Summary/Data Complications: None Consults: None Hospital Course: Oneyda Purvis was admitted for spontaneous labor. On admission her cervix was dilated to 5 cm. She was GBS negative. She had artificial rupture of membranes with clear fluid. She was given an epidural for anesthesia. She progressed to complete and began pushing. On 04/21/2019 she had a normal vaginal delivery of a live male infant at 17:30. Apgars of 8 and 9. Weight of 3280 g (7 pounds 3.7 ounces). Her course was uneventful. Her pain was well controlled and she had minimal lochia. She was ambulating, tolerating a regular diet and voiding normally. She was breast-feeding with minimal difficulty. She was afebrile and her hematocrit was 34.5 on admission. She desired to be discharged home on the morning of PPD #1. Her blood type is A+. - Patient Instructions Diet: Regular Diet as Tolerated Activity: Apply Ice, As Tolerated Activity, Other: Nothing in the vagina for 6 weeks Driving: May Drive Today Showering/Bathing: May Shower Notify Provider of: Fever, Increased Pain, Swelling and Redness, Drainage, Nausea and/or Vomiting Other/Special Instructions: Please contact your physician's office if you have heavy vaginal bleeding enough to soak a pad in less than an hour for several hours. Monitor for any signs of an infection in the breasts with severe pain or redness of the breast. - Discharge Plan *PRESCRIPTION DRUG MONITORING PROGRAM REVIEWED*: Not Applicable *COPY OF PRESCRIPTION DRUG MONITORING REPORT IN PATIENT HARMONY: Not Applicable Home Medications: Home Meds #103/Iron Fumarate/Fa [ ] 1 each PO DAILY 04/21/19 [ History] Ranitidine HCl [Ranitidine] 150 mg PO BID 04/21/19 [History] Acetaminophen [Tylenol] 650 mg PO Q6H PRN tablet 04/22/19 [Rx] Benzocaine/Menthol [Dermoplast Pain Relief Carmine] 1 spray TOP ASDIRECTED PRN canister 04/22/19 [Rx] Docusate Sodium [Colace] 100 mg PO BID PRN cap 04/22/19 [Rx] Hydrocortisone Acetate [Anucort-HC] 25 mg RECTAL BID PRN supp 04/22/19 [Rx] Ibuprofen [Motrin] 600 mg PO Q6H PRN tablet 04/22/19 [Rx] Efraín Mena [Tucks] 1 pad TOP ASDIRECTED PRN pad 04/22/19 [Rx] Patient Handouts: Vaginal Delivery, Care After, Care of a Perineal Tear Referrals: Valente Merlos MD [Primary Care Provider] - (Follow-up in 2 to 3 weeks for routine visit or earlier as needed for any other problems as they may arise.) - Discharge Summary/Plan Comment DC Time >30 min.: No - Patient Data Vitals - Most Recent: Last Vital Signs Temp 36.7 C 04/22/19 02:48 Pulse 64 04/22/19 02:48 Resp 14 04/22/19 02:48 BP 128/70 04/22/19 02:48 Pulse Ox 98 04/22/19 02:48 Weight - Most Recent: 65.771 kg I&O - Last 24 hours: Intake & Output 04/21/19 04/22/19 04/22/19 22:59 06:59 14:59 Intake Total 1600 Balance 1600 Lab Results - Last 24 hrs: Laboratory Results - last 24 hr 04/21/19 04/21/19 Range/Units 12:50 12:50 WBC 13.21 H (3.98-10.04) K/mm3 RBC 4.35 (3.98-5.22) M/mm3 Hgb 10.9 L (11.2-15.7) gm/dl Hct 34.5 (34.1-44.9) % MCV 79.3 L D (79.4-94.8) fl MCH 25.1 L (25.6-32.2) pg MCHC 31.6 L (32.2-35.5) g/dl RDW Std Deviation 38.8 (36.4-46.3) fL Plt Count 233 (182-369) K/mm3 MPV 9.3 L (9.4-12.3) fl Neut % (Auto) 76.4 H (34.0-71.1) % Lymph % (Auto) 13.6 L (19.3-51.7) % [place] % (Auto) 7.5 (4.7-12.5) % Eos % (Auto) 1.8 (0.7-5.8) Baso % (Auto) 0.2 (0.1-1.2) % Neut # (Auto) 10.11 H (1.56-6.13) K/mm3 Lymph # (Auto) 1.79 (1.18-3.74) K/mm3 [place] # (Auto) 0.99 H (0.24-0.36) K/mm3 Eos # (Auto) 0.24 (0.04-0.36) K/mm3 Baso # (Auto) 0.02 (0.01-0.08) K/mm3 Blood Type A POSITIVE Gel Antibody Screen Negative Med Orders - Current: Current Medications Acetaminophen (Tylenol) 650 mg PO Q6H PRN PRN Reason: mild pain or fever Benzocaine/Menthol (Dermoplast Pain Relief Carmine) 0 gm TOP ASDIRECTED PRN PRN Reason: Perineal Comfort Measure Last Admin: 04/21/19 20:01 Dose: 1 canister Docusate Sodium (Colace) 100 mg PO BID PRN PRN Reason: Constipation Last Admin: 04/21/19 20:01 Dose: 100 mg Hydrocortisone Acetate (Anucort-Hc) 25 mg RECTAL BID PRN PRN Reason: Hemorrhoid pain Oxytocin/Lactated Ringer's (Pitocin In Lr 10 Units/1,000 Ml) 10 unit in 1,000 mls @ 100 mls/hr IV TITRATE BERTIN; Protocol Ibuprofen (Motrin) 600 mg PO Q6H PRN PRN Reason: Mild pain or fever Last Admin: 04/22/19 09:09 Dose: 600 mg Prenat Multivit/Juana Diaz/Iron/Folic Ac ( Plus Iron) 1 each PO DAILY BERTIN Last Admin: 04/22/19 09:09 Dose: 1 each Witch Mena (Tucks) 1 pad TOP ASDIRECTED PRN PRN Reason: Perineal Comfort Measure Last Admin: 04/21/19 20:00 Dose: 1 tub Discontinued Medications Ephedrine Sulfate (Ephedrine Sulfate) 5 mg IVPUSH ASDIRECTED PRN PRN Reason: Hypotension Fentanyl (Sublimaze) 100 mcg EPIDUR Q3H PRN PRN Reason: Pain Last Admin: 04/21/19 13:47 Dose: 100 mcg Fentanyl/Bupivacaine HCl (Fentanyl/Bupivacaine/Ns 2 Mcg-0.125% 250 Ml) 0 ml EPIDUR CONTINUOUS PRN PRN Reason: Pain Last Admin: 04/21/19 13:46 Dose: 250 ml Lactated Ringer's (Ringers, Lactated) 1,000 mls @ 100 mls/hr IV ASDIRECTED BERTIN Last Admin: 04/21/19 13:48 Dose: 100 mls/hr Oxytocin/Lactated Ringer's (Pitocin In Lr 10 Units/1,000 Ml) 10 unit in 1,000 mls @ 12 mls/hr IV TITRATE BERTIN; Protocol Oxytocin/Lactated Ringer's (Pitocin In Lr 10 Units/1,000 Ml) 10 unit in 1,000 mls @ 100 mls/hr IV .CONTINUOUS BERTIN; Protocol Phenylephrine HCl 1 mg/ Sodium (Chloride) 10.1 mls @ 1 mls/sec IV TITRATE BERTIN; Protocol Lidocaine HCl (Xylocaine 1%) 50 ml INJECT ONETIME ONE Stop: 04/21/19 12:19 Last Admin: 04/22/19 07:24 Dose: Not Given Nalbuphine HCl (Nubain) 10 mg IVPUSH Q2H PRN PRN Reason: Pain Ondansetron HCl (Zofran) 4 mg IVPUSH Q4H PRN PRN Reason: Nausea/Vomiting Ondansetron HCl (Zofran) 4 mg IVPUSH ONETIME PRN PRN Reason: Nausea/Vomiting Sodium Chloride (Saline Flush) 10 ml FLUSH ASDIRECTED PRN PRN Reason: Keep Vein Open
== END 2019-04-22 19:22 | disposition home or self-care (01) | DRG 560 ==
LOC: JD.OBCHECK 11:35 → JD.OB 11:37 → JD.OBCHECK 12:30 → JD.OB 12:30 → OBSVTOIN 17:30 → JD.OB 17:47
PROVIDERS: ADMIT Obstetrics & Gynecology; ATTEND Obstetrics & Gynecology
PROC: 10E0XZZ Delivery of Products of Conception, External Approach (ICD-10-PCS; principal; 2019-04-21)
PROC: 10907ZC Drainage of Amniotic Fluid, Therapeutic from Products of Conception, Via Natural or Artificial Opening (ICD-10-PCS; 2019-04-21)
PROC: 0HQ9XZZ Repair Perineum Skin, External Approach (ICD-10-PCS; 2019-04-21)
DX: O99.62 Diseases of the digestive system complicating childbirth (principal); O69.1XX0 Labor and delivery complicated by cord around neck, with compression, not applicable or unspecified; Z3A.39 39 weeks gestation of pregnancy; Z37.0 Single live birth; O70.0 First degree perineal laceration during delivery; K21.9 Gastro-esophageal reflux disease without esophagitis; Z88.1 Allergy status to other antibiotic agents; K58.9 Irritable bowel syndrome, unspecified
CPT/HCPCS: 01967; 36415; 51701; 59025; 59409; 85025; 86592; 86850; 86900; 86901; A9270-GY; J3010; J3490; J7120